=== PATIENT | female | born 1985 | race Two or more races ===

== ENCOUNTER 2022-08-16 01:15 | Emergency (ER) | payer OTHER ==
[~2022-08-16] VITALS: Ht 157.5 cm; Wt 84.5 kg
[2022-08-16 01:21] VITALS: BP 146/87
[2022-08-16] MEDS ORDERED: IBUP-1492 PO (01:52)
[2022-08-16] MEDS ORDERED: AMOX1TAB16 PO (01:52)
[2022-08-16] MEDS ORDERED: ACETAMINOPHEN 500 MG TABLET PO ONE (02:00)
[2022-08-16] MEDS ORDERED: AMOX TR/POT CLAV 875 MG/125 MG TABLET PO ONE (02:00)
== END 2022-08-16 02:00 | disposition home or self-care (01) ==
LOC: EMS 01:19
DX: K08.89 Other specified disorders of teeth and supporting structures (principal); Z98.890 Other specified postprocedural states
CPT/HCPCS: 99283